=== PATIENT | male | born 2000 | race Caucasian/White ===

== ENCOUNTER 2021-05-05 14:52 | Emergency (ER) | payer OTHER ==
[2021-05-05 15:04] VITALS: BP 186/96
--- NOTE | 2021-05-05 15:23 | XRAY Report ---
PROCEDURE: Chest 1 View X-Ray INDICATIONS: Chest pain TECHNIQUE: One view of the chest was acquired. COMPARISON: None FINDINGS: Surgical changes and devices: None. Lungs and pleura: No pleural effusions or pneumothorax. Lungs are clear. Mediastinum: Mediastinal contours appear normal. Heart size is normal. Bones and chest wall: No suspicious bony lesions. Overlying soft tissues appear unremarkable. IMPRESSION: No acute cardiopulmonary pathology. Reviewed by: Braulio Forbes MD on 05/05/2021 3:22 PM PDT Approved by: Braulio Forbes MD on 05/05/2021 3:22 PM PDT Station ID: [id number]
[2021-05-05 15:25] LABS: BASOPHILS % (AUTO) 0.6 %; EOSINOPHILS % (AUTO) 0.5 %; HCT - HEMATOCRIT 49.6 % (42.0-52.0); HGB - HEMOGLOBIN 16.8 g/dL (14.0-18.0); LYMPHOCYTES # (AUTO) 1.7 10^3/uL (1.5-3.5); LYMPHOCYTES % (AUTO) 25.3 %; MEAN CORPUSCULAR HEMOGLOBIN 29.6 pg (27.0-31.0); MEAN CORPUSCULAR HGB CONC 33.9 g/dL (32.0-36.0); MEAN CORPUSCULAR VOLUME 87.5 fL (80.0-94.0); MEAN PLATELET VOLUME 9.7 fL (7.4-11.4); MONOCYTES # (AUTO) 0.5 10^3/uL (0.0-1.0); MONOCYTES % (AUTO) 8.3 %; NEUTROPHILS # (AUTO) 4.2 10^3/uL (1.5-6.6); NEUTROPHILS % (AUTO) 64.8 %; PLT - PLATELET COUNT 290 10^3/uL (130-450); RED BLOOD COUNT 5.67 10^6/uL (4.70-6.10); RED CELL DISTRIBUTION WIDTH 11.8 % (12.0-15.0); WHITE BLOOD COUNT 6.5 x10^3/uL (4.8-10.8)
[2021-05-05 15:32] LABS: ALBUMIN 5.3 g/dL (3.2-5.5); ALBUMIN/GLOBULIN RATIO 1.5 (1.0-2.2); BILIRUBIN,TOTAL 0.8 mg/dL (0.2-1.0); CALCIUM 9.6 mg/dL (8.5-10.3); POTASSIUM 3.8 mmol/L (3.5-5.0); TOTAL PROTEIN 8.9 g/dL (6.7-8.2)
--- NOTE | 2021-05-05 18:35 | ED Physician Documentation ---
History of Present Illness - Stated complaint Stated Complaint: CHEST PRESSURE - Chief complaint Chief Complaint: Cardiac - Additonal information Additional information: 20-year-old male presents emergency department for evaluation of chest d iscomfort. He reports that it has been intermittent for about 1 week. Not exertional. Nothing makes it feel better nothing makes it feel worse. He has no cough. No unilateral leg swelling. Chest discomfort is not pleuritic. It sometimes radiates down to his epigastrium but he denies signs of GERD or gastritis. There is no primary family history in siblings parents or grandparents of coronary artery disease. Patient is not a smoker. He reports that a few weeks ago he was told that he had high blood pressure after a workplace injury and has not yet had the opportunity to find a primary care provider. PD PAST MEDICAL HISTORY - Present Medications Home Medications: Ambulatory Orders Medication Instructions Recorded Confirmed hydroCHLOROthiazide [Hydrodiuril] 25 mg PO DAILY #30 tablet 05/05/21 - Allergies Allergies/Adverse Reactions: Allergies Allergy/AdvReac Type Severity Reaction Status Date / Time No Known Drug Allergies Allergy Verified 05/05/21 14:58 Results - Vitals Vitals: Vital Signs - 24 hr 05/05/21 14:58 Temperature 36.5 C Heart Rate 73 Respiratory 16 Rate Blood Pressure 186/96 H O2 Saturation 98 Oxygen O2 Source Room air - EKG (time done) 1825 Rate: Rate (enter#) (86) Rhythm: NSR [place]: Normal Intervals: Normal VA QRS: Normal Ischemia: Normal ST segments Compare to prior EKG: Old EKG unavailable Computer interpretation: Agree with computer - Labs Labs: Laboratory Tests 05/05/21 05/05/21 05/05/21 15:12 15:12 15:12 WBC 6.5 RBC 5.67 Hgb 16.8 Hct 49.6 MCV 87.5 MCH 29.6 MCHC 33.9 RDW 11.8 L Plt Count 290 MPV 9.7 Neut # (Auto) 4.2 Lymph # (Auto) 1.7 [place] # (Auto) 0.5 Eos # (Auto) 0.0 Baso # (Auto) 0.0 Absolute Nucleated RBC 0.00 Nucleated RBC % 0.0 Sodium 135 Potassium 3.8 Chloride 98 L Carbon Dioxide 26 Anion Gap 11.0 BUN 17 Creatinine 1.0 Estimated GFR (MDRD) 93 Glucose 130 H Calcium 9.6 Total Bilirubin 0.8 AST 24 ALT 33 Alkaline Phosphatase 98 Troponin I High Sens 2.8 Total Protein 8.9 H Albumin 5.3 Globulin 3.6 Albumin/Globulin Ratio 1.5 Lipase 21 L - Rads (name of study) CXR Radiology: Final report received (No acute cardiopulmonary process.) PD MEDICAL DECISION MAKING - ED course Complexity details: reviewed results, re-evaluated patient, d/w patient ED course: 20-year-old male presents emergency department for evaluation of intermittent chest pressure and discomfort that has been ongoing for a little more than a week. It is not exertional. He was recently told that he was hypertensive and has not yet started medication. He denies he has gastritis or GERD symptoms but the pain does radiate to his epigastrium. He is not a smoker or drinker nor is he an NSAID user. Screening EKG is nonischemic. High-sensitivity troponin is negative. Other screening labs and electrolytes are also unremarkable. Chest x-ray without acute focal findings. Suspicion for ACS is low. By PERC criteria he is low r isk for PE. Therefore D-dimer CT deferred. I suspect that this gentleman has gastritis or acid reflux contributing to his symptoms. Will recommend [id number] omeprazole once daily for 2 weeks. He is modestly hypertensive here in the emergency department I will start him on hydrochlorothiazide. He is advised to continue to schedule follow-up with primary care provider and have his blood pressure rechecked in 1 week. Emergent return precautions discussed. Departure - Departure Disposition: 01 Home, Self Care Clinical Impression: Chest pain Qualifiers: Chest pain type: unspecified Qualified Code(s): R07.9 - Chest pain, unspecified Hypertension Qualifiers: Hypertension type: unspecified Qualified Code(s): I10 - Essential (primary) hypertension Condition: Stable Record reviewed to determine appropriate education?: Yes Follow-Up: [facility] [Provider Group] Prescriptions: hydroCHLOROthiazide [Hydrodiuril] 25 mg PO DAILY #30 tablet Comments: Erik fritz are seen in the ER today for chest pain. Your screening EKG, chest x- ray blood count and electrolytes were all essentially normal. Your blood pressure is modestly elevated here in the emergency department I would like to start you on hydrochlorothiazide. This is a medication that is a mild diuretic and will make you pee a little bit more. Please take once daily. I would like your blood pressure rechecked in 1 week. That can be done at any urgent care clinic. It is important that you schedule an appointment to follow- up with your primary care doctor for longer-term evaluation of your overall health. If you develop chest pain with exertion, have fainting episodes severe shortness of breath or leg swelling then please return immediately to the ER for a second evaluation.
== END 2021-05-05 19:13 | disposition home or self-care (01) ==
LOC: ED 14:52
DX: I10 Essential (primary) hypertension (principal); R07.89 Other chest pain
CPT/HCPCS: 36415; 80053; 83690; 84484; 85025; 93005; 99284

== ENCOUNTER 2022-04-27 08:00 | Outpatient (CLI) | payer OTHER ==
[2022-04-27 17:51] LABS: BASOPHILS # (AUTO) 0.1 10^3/uL (0.0-0.1); BASOPHILS % (AUTO) 0.5 %; EOSINOPHILS % (AUTO) 0.2 %; HGB - HEMOGLOBIN 15.6 g/dL (14.0-18.0); LYMPHOCYTES % (AUTO) 15.6 %; MEAN CORPUSCULAR HEMOGLOBIN 29.3 pg (27.0-31.0); MEAN CORPUSCULAR HGB CONC 33.2 g/dL (32.0-36.0); MEAN CORPUSCULAR VOLUME 88.3 fL (80.0-94.0); MEAN PLATELET VOLUME 10.3 fL (7.4-11.4); MONOCYTES # (AUTO) 1.1 10^3/uL (0.0-1.0); MONOCYTES % (AUTO) 8.2 %; NEUTROPHILS # (AUTO) 9.8 10^3/uL (1.5-6.6); NEUTROPHILS % (AUTO) 75.1 %; PLT - PLATELET COUNT 269 10^3/uL (130-450); RED BLOOD COUNT 5.32 10^6/uL (4.70-6.10); RED CELL DISTRIBUTION WIDTH 12.1 % (12.0-15.0)
[2022-04-27 18:16] LABS: ALBUMIN 4.9 g/dL (3.2-5.5); ALBUMIN/GLOBULIN RATIO 1.4 (1.0-2.2); BILIRUBIN,TOTAL 0.7 mg/dL (0.2-1.0); CALCIUM 9.8 mg/dL (8.5-10.3); POTASSIUM 4.1 mmol/L (3.5-5.0); TOTAL PROTEIN 8.4 g/dL (6.7-8.2)
[2022-04-27 18:58] LABS: BILIRUBIN,URINE NEGATIVE (NEGATIVE); GLUCOSE, URINE (UA) NEGATIVE (NEGATIVE); KETONES,URINE (UA) NEGATIVE (NEGATIVE); LEUKOCYTE ESTERASE, URINE NEGATIVE (NEGATIVE); NITRITE,URINE NEGATIVE (NEGATIVE); OCCULT BLOOD,URINE TRACE-INTA (NEGATIVE); PROTEIN,URINE NEGATIVE (NEGATIVE); UROBILINOGEN,URINE 0.2 (NORMAL) E.U./dL (NORMAL)
[2022-04-27 20:01] LABS: BACTERIA,URINE Rare /HPF (None Seen); CLARITY,URINE CLEAR (CLEAR); RBC,URINE 0-5 /HPF (0-5); SQUAMOUS EPITHELIAL CELL,UR RARE Squamous (<= Few); WBC,URINE 0-3 /HPF (0-3)
== END 2022-04-27 23:59 | disposition home or self-care (01) ==
LOC: LAB.N 08:00
PROVIDERS: ATTEND Nurse Practitioner
DX: R10.31 Right lower quadrant pain (principal)
CPT/HCPCS: 36415; 80053; 81001; 82150; 83690; 85025; 87086

== ENCOUNTER 2022-04-27 19:22 | Emergency (ER) | payer OTHER ==
[2022-04-27 19:57] LABS: BASOPHILS % (AUTO) 0.3 %; EOSINOPHILS # (AUTO) 0.1 10^3/uL (0.0-0.7); EOSINOPHILS % (AUTO) 0.5 %; HCT - HEMATOCRIT 47.5 % (42.0-52.0); HGB - HEMOGLOBIN 15.6 g/dL (14.0-18.0); LYMPHOCYTES # (AUTO) 2.4 10^3/uL (1.5-3.5); LYMPHOCYTES % (AUTO) 22.7 %; MEAN CORPUSCULAR HEMOGLOBIN 29.1 pg (27.0-31.0); MEAN CORPUSCULAR HGB CONC 32.8 g/dL (32.0-36.0); MEAN CORPUSCULAR VOLUME 88.5 fL (80.0-94.0); MEAN PLATELET VOLUME 9.7 fL (7.4-11.4); MONOCYTES # (AUTO) 0.8 10^3/uL (0.0-1.0); MONOCYTES % (AUTO) 7.9 %; NEUTROPHILS # (AUTO) 7.2 10^3/uL (1.5-6.6); NEUTROPHILS % (AUTO) 68.3 %; PLT - PLATELET COUNT 261 10^3/uL (130-450); RED BLOOD COUNT 5.37 10^6/uL (4.70-6.10); RED CELL DISTRIBUTION WIDTH 12.1 % (12.0-15.0); WHITE BLOOD COUNT 10.6 x10^3/uL (4.8-10.8)
[2022-04-27 20:08] LABS: ALBUMIN 4.7 g/dL (3.2-5.5); ALBUMIN/GLOBULIN RATIO 1.3 (1.0-2.2); BILIRUBIN,TOTAL 0.8 mg/dL (0.2-1.0); CALCIUM 9.5 mg/dL (8.5-10.3); CREATININE 1.1 mg/dL (0.6-1.2); POTASSIUM 3.6 mmol/L (3.5-5.0); TOTAL PROTEIN 8.2 g/dL (6.7-8.2)
--- NOTE | 2022-04-27 20:24 | ED Physician Documentation ---
History of Present Illness - Stated complaint Stated Complaint: LRQ ABD PX - Chief complaint Chief Complaint: Abd Pain - Additonal information Additional information: 21-year-old male comes to the emergency department on the advice of a walk-in clinic provider for evaluation of cute onset right lower quadrant abdominal pain and concern of leukocytosis. 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 It improved somewhat when standing but has not fully abated. It is waxed and waned in intensity through the day. No fevers, nausea vomiting diarrhea or recent constipation. No per tinent past surgical history. Screening labs completed at local walk-in clinic showed a mild leukocytosis with white count of 13,000. Repeat CBC here shows an unremarkable CBC. Review of Systems Constitutional: reports: Reviewed and negative Ears: reports: Reviewed and negative Throat: reports: Reviewed and negative Cardiac: reports: Reviewed and negative Respiratory: reports: Reviewed and negative GI: reports: Abdominal Pain. denies: Nausea, Vomiting, Constipation, Diarrhea, Hematemesis : reports: Reviewed and negative Skin: reports: Reviewed and negative PD PAST MEDICAL HISTORY - Present Medications Home Medications: Ambulatory Orders Medication Instructions Recorded Confirmed hydroCHLOROthiazide [Hydrodiuril] 25 mg PO DAILY #30 tablet 05/05/21 - Allergies Allergies/Adverse Reactions: Allergies Allergy/AdvReac Type Severity Reaction Status Date / Time No Known Drug Allergies Allergy Verified 04/27/22 19:29 PD ED PE NORMAL - General General: Alert and oriented X 3, No acute distress, Well developed/nourished - Neck Neck: Supple, no meningeal sign, No adenopathy - Cardiac Cardiac: RRR, No murmur - Respiratory Respiratory: No respiratory distress, Clear bilaterally - Abdomen Abdomen: Normal bowel sounds, Soft. No: Non tender (Mild tenderness to the right lower quadrant without guarding or rebound. No percussion tenderness. Negative McBurney's.) - Back Back: No CVA TTP, No spinal TTP - Derm Derm: Normal color, Warm and dry, No rash - Extremities Extremities: No deformity, No tenderness to palpate, Normal ROM s pain - Neuro Neuro: Alert and oriented X 3, claim processor 2-12 intact Eye Opening: Spontaneous Motor: Obeys Commands Verbal: Oriented GCS Score: 15 Results - Vitals Vitals: Vital Signs - 24 hr 04/27/22 04/27/22 19:25 21:27 Temperature 36.8 C Heart Rate 125 H 105 H Respiratory 14 20 Rate Blood Pressure 182/82 H 168/91 H O2 Saturation 99 100 Oxygen O2 Source Room air - Labs Labs: Laboratory Tests 04/27/22 04/27/22 19:49 19:49 WBC 10.6 RBC 5.37 Hgb 15.6 Hct 47.5 MCV 88.5 MCH 29.1 MCHC 32.8 RDW 12.1 Plt Count 261 MPV 9.7 Neut # (Auto) 7.2 H Lymph # (Auto) 2.4 [place] # (Auto) 0.8 Eos # (Auto) 0.1 Baso # (Auto) 0.0 Absolute Nucleated RBC 0.00 Nucleated RBC % 0.0 Sodium 137 Potassium 3.6 Chloride 99 L Carbon Dioxide 28 Anion Gap 10.0 BUN 17 Creatinine 1.1 Estimated GFR (MDRD) 83 L Glucose 148 H Calcium 9.5 Total Bilirubin 0.8 AST 24 ALT 30 Alkaline Phosphatase 80 Total Protein 8.2 Albumin 4.7 Globulin 3.5 Albumin/Globulin Ratio 1.3 Lipase 28 - Rads (name of study) CT AP Radiology: Prelim report reviewed (Borderline thickening of the appendix without definite periappendiceal fat stranding or fluid. The findings are equivocal for early appendicitis. No evidence of nephrolithiasis or obstructive uropathy. No evidence of cholecystitis. Colonic diverticulosis without acute diverticulitis), Final report received PD MEDICAL DECISION MAKING - ED course Complexity details: reviewed results, re-evaluated patient, d/w patient, d/w customer service consultant (Moreno Coates MD (surgeon)) ED course: 21-year-old male presents emergency department for evaluation of acute right lower quadrant abdominal pain that began about 10 this morning. It has waxed and waned in intensity been been persistent since. No fevers nausea or vomiting. He was seen a local walk-in clinic where he had screening labs obtained that showed mild leukocytosis of 13,000. He was called by that provider and told to come to the ER to rule out appendicitis. On presentation here to the emergency department patient appears remarkably well. He has a very benign abdominal exam in general. There is some mild tenderness to the right lower quadrant but no guarding or rebound. Negative McBurney's. Screening labs were again obtained and the previously noted leukocytosis has resolved. His electrolytes were without acute worrisome abnormalities. A CT was completed and it does show borderline thickening of the appendix without fat stranding or fluid collection. The findings are equivocal for early appendicitis. Though we do not have any surgical capability tonight, surgery is available tomorrow. I did call Dr. Titi Coates our surgeon on-call. He reported that he would not be able to take the patient to surgery tomorrow and Sunday would be the earliest. However given a rather benign abdominal exam and the CT findings which were equivocal, lack of fever or leukocytosis, he felt that the patient could be safely discharged home as long as he was tolerating p.o. If his symptoms were changing in any way such as worsening pain, fevers uncontrolled vomiting or failure of the pain to resolve then the patient should return to the ER for repeat evaluation. If the symptoms fully resolved primary provider should make referral for patient to be seen by surgeon in follow-up. I discussed with the patient and his grandfather at the bedside that we do not have surgical capacity tonight. They understand that the patient may clinically decline but feel comfortable returning to either this ER, [facility] or [facility] for further evaluation should his symptoms worsen. The patient was given initial dose of Augmentin here in the emergency department and a prescription will be sent to [facility]. Departure - Departure Disposition: 01 Home, Self Care Clinical Impression: RLQ abdominal pain Condition: Stable Record reviewed to determine appropriate education?: Yes Comments: Erik fritz are seen today in the emergency department for pain in the right lower quadrant of your abdomen. Your screening labs today in the emergency department are essentially normal. However the CT scan is suggestive of possible early appendicitis. I did discuss this case with Dr. Titi Coates our surgeon today. Because your labs and your abdominal exam are relatively reassuring we feel that we can safely discharge you home. However if over the next 12 to 24 hours your symptoms are not improving, you have worsening pain, develop any fevers or vomiting you must return immediately to the ER in order to be reevaluated for possible surgery. If you find that your symptoms resolve your primary doctor should make a referral for you to a surgeon in order to be reevaluated in the long-term.
--- NOTE | 2022-04-27 21:05 | CT Report ---
PROCEDURE: Abdomen/Pelvis WO INDICATIONS: RLQ pain TECHNIQUE: Noncontrast 5 mm thick sections acquired from the diaphragms to the symphysis. 5 mm coronal and sagi ttal reformats were then performed. For radiation dose reduction, the following was used: automated exposure control, adjustment of mA and/or kV according to patient size. COMPARISON: None. FINDINGS: Image quality: Excellent. Lung bases: Unremarkable. Heart: Heart is normal in size. ABDOMEN: Liver:Noncontrast evaluation of the liver demonstrates no discrete mass. Gallbladder: Within normal limits without calcified gallstones. Biliary ducts: No biliary ductal dilatation. Pancreas: Unremarkable. Spleen: Normal in size. Adrenal Glands: No adrenal nodules. Kidneys and Ureters: No hydronephrosis or nephrolithiasis. Stomach and Bowel: Stomach, small bowel loops, and colon are normal in caliber and wall thickness. T he appendix is at upper limits of normal in diameter, measuring up to 0.7 cm. No definite periappendi ceal fat stranding or fluid. No appendicoliths. There is colonic diverticulosis without acute diverti culitis. Peritoneum: No abnormal intraperitoneal fluid. No free air. Ventral Wall: No hernia. Abdominal Nodes: No retroperitoneal or mesenteric adenopathy by size criteria. Vessels: Aorta and inferior vena cava are normal in size. PELVIS: Pelvic Organs: Unremarkable. Bladder: Unremarkable. Pelvic Nodes: No enlarged lymph nodes. Miscellaneous: No inguinal hernias are seen. Bones: Visualized osseous structures demonstrate no suspicious focal lesions.. IMPRESSION: 1. Borderline thickening of the appendix without definite periappendiceal fat stranding or fluid. The findings are equivocal for early appendicitis and correlation is recommended clinically. 2. No evidence of nephrolithiasis or obstructive uropathy. No CT evidence of cholecystitis. 3. Colonic diverticulosis without acute diverticulitis. Reviewed by: Luiz Young MD on 04/27/2022 9:03 PM PDT Approved by: Luiz Young MD on 04/27/2022 9:03 PM PDT Station ID: [id number]
[2022-04-27 21:28] VITALS: BP 168/91
[2022-04-27] MEDS ORDERED: AMOX/CLAV 875 MG/125 MG TABLET PO STA (21:35)
== END 2022-04-27 21:54 | disposition home or self-care (01) ==
LOC: ED 19:22
DX: R10.31 Right lower quadrant pain (principal)
CPT/HCPCS: 36415; 80053; 81001; 82150; 83690; 85025; 87086; 99282; 99284

== ENCOUNTER 2022-08-07 20:05 | Emergency (ER) | payer OTHER ==
[2022-08-07] MEDS ORDERED: TETANUS/DIPHTHERIA/PERTUSSIS 0.5 ML SYRINGE IM ONE (21:33)
--- NOTE | 2022-08-07 21:42 | ED Physician Documentation ---
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 He states that there is a laceration to the ear. Unknown last tetanus. Bleeding controlled. Better with pressure. Nothing makes it worse. Review of Systems Constitutional: denies: Fever, Chills Respiratory: denies: Cough Skin: denies: Rash Neurologic: denies: Headache PD PAST MEDICAL HISTORY - Past Medical History Past Medical History: No - Past Surgical History Past Surgical History: No - Present Medications Home Medications: Ambulatory Orders Medication Instructions Recorded Confirmed No Known Home Medications 08/07/22 08/07/22 - Allergies Allergies/Adverse Reactions: Allergies Allergy/AdvReac Type Severity Reaction Status Date / Time No Known Drug Allergies Allergy Verified 08/07/22 20:42 - Living Situation Living Arrangement: reports: At home - Social History Does the pt have substance abuse?: No - Family History Family history: reports: Non contributory - Immunizations Immunizations are current?: No Immunizations: TDAP >10years/unknown PD ED PE NORMAL - Vitals Vital signs reviewed: Yes - General General: Alert and oriented X 3, No acute distress - HEENT HEENT: Moist mucous membranes - Derm Derm: Warm and dry - Neuro Neuro: Alert and oriented X 3 PD ED PE EXPANDED - HEENT HEENT Visual: 1 - laceration (Small superficial laceration to the right ear. No cartilage involvement. Approximately 1 cm.) Results - Vitals Vitals: Vital Signs - 24 hr 08/07/22 08/07/22 20:38 21:49 Temperature 36.6 C 36.9 C Heart Rate 110 H 99 Respiratory 16 16 Rate Blood Pressure 139/97 H 159/107 H O2 Saturation 98 100 Oxygen O2 Source Room air Procedures - Laceration (location) Right ear Length in cm: 1 Wound type: Linear, Superficial Neurovascular status: Sensory intact, Motor intact, Vascular intact Wound preparation: Irrigated copiously NS Skin layer closure: Dermabond Other: Patient tolerated well, No complications, Neurovascular intact, Tetanus booster given PD MEDICAL DECISION MAKING - ED course Complexity details: considered differential, d/w patient ED course: 22-year-old male with a superficial laceration to the right ear. No cartilage involvement. No deformity. Cleansed with saline. Dermabond applied. No further bleeding. Warnings of infection and instructions on wound care given at bedside. Also counseled on how to minimize scarring. Patient counseled regarding signs and symptoms for which I believe and urgent re-evaluation would be necessary. Patient with good understanding of and agreement to plan and is comfortable going home at this time This document was made in part using voice recognition software. While efforts are made to proofread this document, sound alike and grammatical errors may occur. Departure - Departure Disposition: 01 Home, Self Care Clinical Impression: Laceration of ear Qualifiers: Encounter type: initial encounter Laterality: right Qualified Code(s): S01.311A - Laceration without foreign body of right ear, initial encounter Condition: Good Instructions: ED Laceration Facial Skin Glue Follow-Up: your,doctor as needed [Other] Comments: You were given a tetanus shot today. Please follow-up with your doctor for further care. The glue will dissolve on its own in about 5 days. Keep the wound clean. Return if you notice redness, swelling or drainage from the wound. Discharge Date/Time: 08/07/22 21:54
[2022-08-07 21:51] VITALS: BP 159/107
== END 2022-08-07 21:54 | disposition home or self-care (01) ==
LOC: ED 20:05
DX: S01.311A Laceration without foreign body of right ear, initial encounter (principal); W45.8XXA Other foreign body or object entering through skin, initial encounter; Y99.0 Civilian activity done for income or pay; Z23 Encounter for immunization; Z71.85 Encounter for immunization safety counseling
CPT/HCPCS: 12011; 90471; 99283

== ENCOUNTER 2023-11-14 13:00 | Outpatient (CLI) | payer OTHER ==
[2023-11-14 17:58] LABS: BASOPHILS # (AUTO) 0.1 10^3/uL (0.0-0.1); BASOPHILS % (AUTO) 0.7 %; EOSINOPHILS % (AUTO) 0.5 %; HCT - HEMATOCRIT 44.9 % (42.0-52.0); HGB - HEMOGLOBIN 15.3 g/dL (14.0-18.0); LYMPHOCYTES # (AUTO) 2.2 10^3/uL (1.5-3.5); LYMPHOCYTES % (AUTO) 26.4 %; MEAN CORPUSCULAR HEMOGLOBIN 29.9 pg (27.0-31.0); MEAN CORPUSCULAR HGB CONC 34.1 g/dL (32.0-36.0); MEAN CORPUSCULAR VOLUME 87.9 fL (80.0-94.0); MEAN PLATELET VOLUME 10.2 fL (7.4-11.4); MONOCYTES # (AUTO) 0.9 10^3/uL (0.0-1.0); MONOCYTES % (AUTO) 10.6 %; NEUTROPHILS % (AUTO) 61.6 %; PLT - PLATELET COUNT 320 10^3/uL (130-450); RED BLOOD COUNT 5.11 10^6/uL (4.70-6.10); RED CELL DISTRIBUTION WIDTH 12.3 % (12.0-15.0); WHITE BLOOD COUNT 8.1 x10^3/uL (4.8-10.8)
[2023-11-14 18:10] LABS: THYROID STIMULATING HORMONE 2.18 uIU/mL (0.34-5.60)
[2023-11-14 19:19] LABS: ALBUMIN 4.8 g/dL (3.2-5.5); ALBUMIN/GLOBULIN RATIO 1.6 (1.0-2.2); ALKALINE PHOSPHATASE 83 IU/L (42-121); ALT ALANINE AMINOTRANSFERASE 26 IU/L (10-60); AST ASPARTATE AMINOTRANSFERASE 20 IU/L (10-42); BILIRUBIN,TOTAL 0.5 mg/dL (0.2-1.0); BUN - BLOOD UREA NITROGEN 14 mg/dL (6-20); CALCIUM 9.6 mg/dL (8.5-10.3); CARBON DIOXIDE - CO2 27 mmol/L (21-32); CHLORIDE 100 mmol/L (101-111); CHOLESTEROL 144 mg/dL; GFR - MDRD 91 (>89); GLUCOSE 88 mg/dL (74-104); HDL CHOLESTEROL 29 mg/dL; LDL CHOLESTEROL,CALCULATED 98 mg/dL; LDL/HDL RATIO 3.4 (<3.6); SODIUM 137 mmol/L (135-145); TOTAL PROTEIN 7.8 g/dL (6.4-8.9); TRIGLYCERIDES 86 mg/dL (48-352); VLDL CHOLESTEROL 17 mg/dL
== END 2023-11-14 13:01 | disposition home or self-care (01) ==
LOC: LAB.N 13:00
PROVIDERS: ATTEND Physician Assistant
DX: I10 Essential (primary) hypertension (principal); Z13.220 Encounter for screening for lipoid disorders
CPT/HCPCS: 36415; 80053; 80061; 83721; 84443; 85025

== ENCOUNTER 2024-02-01 14:54 | Outpatient (CLI) | payer OTHER ==
--- NOTE | 2024-02-01 15:51 | Sleep Patient Instructions ---
Sleep Center Visit Summary - Patient Visit Information Reason for Visit: Initial consult for evaluation of sleep disordered breathing and other sleep issues. - Patient Instructions Instructions Attached: Sleep Study Home Monitor, Sleep Study Additional Instructions: You will be completing a sleep study, either an in-lab polysomnography (PSG) or home sleep study (HST). You will follow-up in the sleep care office after the sleep study is completed to hear the results and talk about therapy, if needed. You will be called by our office staff to schedule this appointment, but you may contact us with any questions. - Clinic Information Contact: [facility] [address] [place] [id number] [email or web address] T: [phone]
--- NOTE | 2024-02-01 15:54 | SLEEP CARE CONSULTATION ---
Information from patient questionnaire entered by Prashant Magana. I have reviewed and concur with the information entered by Prashant Magana. This document represents the service I personally performed and the decisions made by me, Gita Maldonado ARNP. 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 denies: Choking, Snoring, Gasping for air Toss, Turn, or Twitch while sleeping: Yes Recalls having dreams: Yes Usually gets out of bed at: 0445; weekends 7-8 AM Feels refreshed in the morning: No Morning headache: No Sleepy or fatigued during the day: Yes Ever fallen asleep while driving: No Takes day naps: Yes (weekday, march nap (unintentional); weekends not often) Dreams during day naps: No Prior sleep studies: No Additional HPI information: I had the pleasure of seeing CORNELIUS ROGERS today regarding the possibility of him having a sleep disorder. His current complaints are snoring and excessive daytime sleepiness. He says his family has a history of sleep apnea. He has been told he snores. He says it started after he gained weight over time. He has not noticed any breathing problems when sleeping. 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 - Parasomnia Symptoms Ever been unable to move upon waking from sleep: No Walks in sleep: No Talks in sleep: No Ever acted out dreams in sleep: No Ever felt weak in the knees when startled or emotional: No Bothered by creepy, crawly, restless sensations in legs: No Problems with memory or concentration: Yes (ADHD since 8 yrs old; short term memory affected sometimes) Subjective Initial [place] Sleepiness Scale score: 6 (12/20/23) Past Medical History Past Medical History: reports: Hypertension, Attention deficit (ADHD, no medications since 2018) Social History The patient's occupation is a TEACHER. Patient is Single and lives in . Have you smoked in the past 12 months: No Alcohol use: No Caffeine use: Yes Caffeine amount and frequency: 16OZ 1-2 X MONTH TEAS AND JUICES Family History Family history of sleep disordered breathing: Yes Family Hx Sleep Apnea: Father: Snoring, Sleep apnea - Treated, Grandparent: Snoring, Sleep apnea - Treated Allergies and Home Medications Known drug allergies: No Drug allergies reviewed: Yes Home medication list reviewed: Yes (as listed) Allergy and home medication list: Allergies No Known Drug Allergies Allergy (Verified 01/30/24 14:37) Home Medications Medication Instructions Recorded Confirmed Last Taken Type Amlodipine Bes/Olmesartan Med See Rx Instructions .ROUTE .COMPLEX 01/31/24 01/31/24 Unknown History [Amlodipine-Olmesartan 10-40 mg] Review of Systems Weight gain over past 5 years: 50 Cardiovascular: reports: high blood pressure Gastrointestinal: denies: heartburn Neurological: reports: headaches, head trauma (minor concussion in HS with football) Psychiatric: reports: Attention Deficit Hyperactivity. denies: anxiety, depression Ear/Nose/Throat: reports: tonsillectomy, wisdom teeth removed. denies: injury to nose Endocrine: denies: thyroid disease Immunologic: reports: allergies to food or environment Physical Exam Vital signs obtained and entered by: PRASHANT Taveras MA Blood Pressure: 140/82 (LEFT ARM) Cuff size: regular Heart Rate: 76 O2 Saturation: 99 Height: 5 ft 9 in Weight: 300 lb 3.2 oz Body Mass Index: 44.3 BMI Classification: Morbidly Obese Neck circumference: 17.75 Mouth and throat: narrow oropharynx Soft palate: long Hard palate: normal Uvula: normal Uvula visualization: 25% Mallampati Class III Tongue: enlarged in size with teeth caballero on lateral edges Tonsils: absent bilaterally Neck: normal w/o lymphadenopathy or thyromegaly Heart: regular rate and rhythm Lungs: clear bilaterally Impression and Plan 1. Suspected Obstructive Sleep Apnea-Hypopnea Syndrome, as suggested by a history of loud and irregular snoring, unrefreshed sleep, cognitive impairment, and excessive daytime sleepiness. Narrow oropharynx and obesity are common predisposing factors for obstructive sleep apnea-hypopnea syndrome. I recommend proceeding to polysomnography to confirm the diagnosis and to assess severity. If the patient has significant sleep disordered breathing, a manual CPAP titration study will also be performed to find the optimal treatment pressure. I informed the patient of what the sleep studies involve and after some discussion, obtained agreement to proceed. The pathophysiology of obstructive sleep apnea-hypopnea syndrome was discussed with the patient and health risks of cardiovascular and cerebrovascular disease if not treated. Risks of drowsy driving discussed in detail and patient advised to avoid long distance driving and to toe puller at the first sign of drowsiness. Patient agreed to plan. * Schedule polysomnography * Avoid long distance driving or driving when feeling sleepy. * Avoid alcohol, sedative and muscle relaxant around bedtime. * Attempt to lose weight. * Review instructions provided by trained office staff on how to prepare for the sleep study. * Return for follow-up after sleep study completed. Counseling Topics: Weight loss health impact Plan: PSG/HST Visit Type: In Office Time Spent with Patient (minutes): 30 Provider Statement: I spent 100% of the Face to Face Visit with the patient with greater than 50% spent counseling the patient and coordination of care.
[2024-02-01 15:55] VITALS: BP 140/82; O2SAT 99
== END 2024-02-01 14:55 | disposition home or self-care (01) ==
LOC: SC 14:54
PROVIDERS: ATTEND Nurse Practitioner Family
DX: R06.83 Snoring (principal); G47.10 Hypersomnia, unspecified; G47.8 Other sleep disorders; R41.89 Other symptoms and signs involving cognitive functions and awareness
CPT/HCPCS: 99203; 99212

== ENCOUNTER 2024-03-05 13:49 | Outpatient (CLI) | payer OTHER | END 2024-03-05 13:50 | disposition home or self-care (01) | LOC: SC 13:49 | PROVIDERS: ATTEND Nurse Practitioner Family | DX: G47.10 Hypersomnia, unspecified (principal); R06.83 Snoring; G47.8 Other sleep disorders; E66.9 Obesity, unspecified; I10 Essential (primary) hypertension ==

== ENCOUNTER 2024-04-01 11:58 | Emergency (ER) | payer OTHER ==
--- NOTE | 2024-04-01 12:22 | ED Physician Documentation ---
PD HPI UPPER EXT INJURY - Stated complaint Stated Complaint: LT ARM INJ - Chief complaint Chief Complaint: Trauma Ext - History obtained from History obtained from: Patient - History of Present Illness Location: Left - Additonal information Additional information: He works at a daycare. He slipped on a wet patch of the floor while working and his body kind of fell below a table while his arm stayed on the table and his arm was yanked. He has severe pain in the left mid humeral area. No other injuries. PD PAST MEDICAL HISTORY - Past Medical History Past Medical History: Yes Cardiovascular: Hypertension - Past Surgical History Past Surgical History: Yes HEENT: Tonsil/Adenoidectomy - Present Medications Home Medications: Ambulatory Orders Medication Instructions Recorded Confirmed Amlodipine Bes/Olmesartan Med 1 tab PO DAILY 01/31/24 04/01/24 [Amlodipine-Olmesartan 10-40 mg] - Allergies Allergies/Adverse Reactions: Allergies Allergy/AdvReac Type Severity Reaction Status Date / Time chocolate AdvReac Headache Verified 04/01/24 12:08 red (food color) AdvReac Headache Verified 04/01/24 12:08 - Social History Does the pt smoke?: No Smoking Status: Never smoker Does the pt drink ETOH?: No Does the pt have substance abuse?: No - Immunizations Immunizations are current?: No Immunizations: TDAP >10years/unknown PD ED PE NORMAL - Vitals Vital signs reviewed: Yes - General General: Alert and oriented X 3, No acute distress - Extremities Extremities: Other (Initial exam was with him dressed, will take some time and pain control to get him undressed. That said he seems to have severe tenderness in the left mid humeral area and cannot range the arm at all. He has normal sensation in the left hand and normal pulses and cap refill in the left hand.) - Neuro Neuro: Alert and oriented X 3, piece dyer 2-12 intact Eye Opening: Spontaneous Motor: Obeys Commands Verbal: Oriented GCS Score: 15 Results - Vitals Vitals: Vital Signs - 24 hr 04/01/24 04/01/24 04/01/24 12:01 13:10 13:25 Temperature 36.7 C 36.8 C Heart Rate 100 85 100 Respiratory 20 20 22 Rate Blood Pressure 177/145 H 147/100 H 142/78 H O2 Saturation 100 100 100 If not protocol 2 : Oxygen Flow, liters/minute 04/01/24 04/01/24 04/01/24 13:27 13:39 13:57 Temperature 36.8 C Heart Rate 100 81 99 Respiratory 24 18 17 Rate Blood Pressure 132/86 H 124/79 127/82 H O2 Saturation 97 99 97 If not protocol 6 4 : Oxygen Flow, liters/minute Oxygen O2 Source Room air - Rads (name of study) X-rays of the left humerus and shoulder showing a anterior shoulder dislocation. Relevant Findings:: Final report received, Discussed with rads, EMP independent interpretation of test Postreduction x-ray of the left shoulder demonstrates interval reduction with possible Hill-Sachs deformity. Relevant Findings:: Final report received, EMP independent interpretation of test Procedures - Reduction Body part reduced: Left, Shoulder Fracture or dislocation: Dislocation Shoulder reduction technique: [place] / ext rotation Reduction aftercare: Xray confirms reduction, Alignment improved, Sling - Procedural sedation Sedation prep: Informed consent, ASA 2 - mild disease Sedation Medications: propofol (150mg IVP) Mallampati classification: II Patient status during sedation: Unresponsive Sedation recovery: Recovered uneventfully Time in sedation (Minutes): 13 Departure - Departure Disposition: 01 Home, Self Care Clinical Impression: Dislocation of left shoulder joint Qualifiers: Encounter type: initial encounter Qualified Code(s): S43.005A - Unspecified dislocation of left shoulder joint, initial encounter Condition: Good Record reviewed to determine appropriate education?: Yes Instructions: ED Dislocation Shoulder Redu Follow-Up: [facility] [Provider Group] - Within 1 week Comments: Wear the sling for the most part but you can start gentle range of motion exercises. Call the orthopedics office for a follow-up appointment, call today for an appointment within the week or so. Return for new or worsening symptoms. Tylenol and/or ibuprofen as needed for pain, but you should not be having too much pain at this point since the shoulder was reduced. Forms: PCP List, Activity restrictions Discharge Date/Time: 04/01/24 14:08
[2024-04-01] MEDS: oxyCODONE 5 MG TABLET PO STA (12:26)
[2024-04-01] MEDS: IBUPROFEN 800 MG TABLET PO STA (12:27)
[2024-04-01] MEDS ORDERED: PROPOFOL 200 MG/20 ML VIAL IVP STA (13:00)
--- NOTE | 2024-04-01 13:00 | XRAY Report ---
PROCEDURE: Humerus LT INDICATIONS: arm inj TECHNIQUE: 2 views of the humerus were acquired. COMPARISON: None. FINDINGS: Bones: Question anterior glenohumeral joint dislocation. This is not definite. No fractures seen. No suspicious bony lesions. Soft tissues: No suspicious soft tissue calcifications or masses. IMPRESSION: Question anterior shoulder dislocation or subluxation. Above discussed with Emeterio Joshi MD at the time of dictation. Reviewed by: Deandre Lund MD on 04/01/2024 12:59 PM PDT Approved by: Deandre Lund MD on 04/01/2024 12:59 PM PDT Station ID: [id number]
[2024-04-01] MEDS: HYDROmorphone 1 MG/ML CARPUJECT IVP STA (13:03)
--- NOTE | 2024-04-01 13:11 | XRAY Report ---
PROCEDURE: Shoulder 2+V LT INDICATIONS: shoulder inj TECHNIQUE: 3 views of the shoulder were acquired. COMPARISON: Left humerus from the same date. FINDINGS: Bones: Anterior shoulder dislocation. No acute fracture noted. No suspicious bony lesions. Visualiz ed ribs appear intact. Soft tissues: No suspicious soft tissue calcifications. The visualized lungs are within normal limi ts. IMPRESSION: Anterior shoulder dislocation. Reviewed by: Deandre Lund MD on 04/01/2024 1:10 PM PDT Approved by: Deandre Lund MD on 04/01/2024 1:10 PM PDT Station ID: [id number]
[2024-04-01 13:59] VITALS: BP 127/82; O2SAT 97
--- NOTE | 2024-04-01 14:23 | XRAY Report ---
PROCEDURE: Shoulder 2+V LT INDICATIONS: post reduction TECHNIQUE: 3 views of the shoulder were acquired. COMPARISON: Same date x-ray. FINDINGS: Bones: Interval reduction, with improved alignment. Questionable Hill-Sachs deformity of the humeral head. Soft tissues: No suspicious soft tissue calcifications. The visualized lungs are within normal limi ts. IMPRESSION: Interval reduction, with normal alignment. Questionable impacted Hill-Sachs deformity of the humeral head. Reviewed by: Kedar Alvarez MD on 04/01/2024 2:21 PM PDT Approved by: Kedar Alvarez MD on 04/01/2024 2:21 PM PDT Station ID: [id number]
== END 2024-04-01 14:08 | disposition home or self-care (01) ==
LOC: ED 11:58
DX: S43.005A Unspecified dislocation of left shoulder joint, initial encounter (principal); W01.0XXA Fall on same level from slipping, tripping and stumbling without subsequent striking against object, initial encounter; Y92.210 Daycare center as the place of occurrence of the external cause; Y99.0 Civilian activity done for income or pay; I10 Essential (primary) hypertension
CPT/HCPCS: 23655; 73030; 73060; 96374; 99152; 99284; 99285; A9270; J1170